=== PATIENT | female | born 1945 | race Caucasian/White ===

== ENCOUNTER 2016-06-08 11:38 | Emergency (ER) | payer MEDICARE ==
[2016-06-08 11:46] VITALS: BP 106/79
[2016-06-08] MEDS ORDERED: Adenosine SYRINGE* 6 MG/2 ML IV PUSH ONE (11:57)
[2016-06-08] MEDS ORDERED: Adenosine* 3 MG/ML VIAL ONE (11:59)
[2016-06-08 12:07] LABS: Hematocrit 43 % (35-47); Hemoglobin 14.1 g/dl (12.0-16.0); Mean Corpuscular HGB Conc 33 g/dl (31-36); Mean Corpuscular Hemoglobin 29 pg (27-31); Mean Corpuscular Volume 89 fL (80-97); Mean Platelet Volume 8 um3 (7.4-10.4); Red Blood Count 4.83 10^6/ul (4.0-5.4); Red Cell Distribution Width 14 % (10.5-15); White Blood Count 9.7 10^3/ul (3.5-10.8)
[2016-06-08 12:14] LABS: Potassium 3.6 mmol/L (3.5-5.0)
[2016-06-08 12:19] LABS: Troponin I 0.01 ng/mL (<0.04)
[2016-06-08 12:56] LABS: TSH (Thyroid Stimulating Horm) 1.71 mcIU/mL (0.34-5.60)
[2016-06-08 13:44] LABS: Albumin 3.8 g/dL (3.2-5.2); BUN/Creatinine Ratio 24.1 (8-20); Calcium 9.6 mg/dL (8.6-10.3); EGFR African American 82.1 (>60); EGFR Non-African American 63.8 (>60); Globulin 2.6 g/dL (2-4); Magnesium 1.9 mg/dL (1.9-2.7); Total Bilirubin 0.5 mg/dL (0.2-1.0); Total Protein 6.4 g/dL (6.4-8.9)
--- NOTE | 2016-06-08 14:01 | ED ---
Gerson Cheek Karl, scribed for Michael Montes MD on 06/08/16 at 1154 . HPI Cardiac - HPI Summary HPI Summary: Pt is a 71 y/o female that presents to the ED c/o rapid HR and mild SOB at approx 11:15 this morning. Pt stated she has episodes like this every 3 months and can usually control it herself, but today while driving she could not so she decided to come to the ED. Hx: SVT, A-fib. - History of Current Complaint Chief Complaint: EDDysrhythmPalp Stated Complaint: CHEST PAIN Time Seen by Provider: 06/08/16 11:43 Hx Obtained From: Patient Onset/Duration: Started Minutes Ago Time of Onset: 11:15 Timing: Intermittent Initial Severity: Moderate Current Severity: Moderate Pain Intensity: 0 Pain Scale Used: 0-10 Numeric Aggravating Factor(s): Nothing Alleviating Factor(s): Nothing Associated Signs and Symptoms: Positive: Palpitations - Allergy/Home Medications Allergies/Adverse Reactions: Allergies Allergy/AdvReac Type Severity Reaction Status Date / Time No Known Allergies Allergy Verified 06/08/16 11:46 Home Medications: Home Medications Diltiazem HCl Extended Release [Diltiazem HCl ER] 120 mg PO DAILY 06/08/16 [ History Confirmed 06/08/16] Potassium Chlor TAB* [Klor Con ER TAB*] 10 meq PO DAILY 06/08/16 [History Confirmed 06/08/16] Rosuvastatin (NF) [Crestor (NF)] 5 mg PO DAILY 06/08/16 [History Confirmed 06/08] PMH/Surg Hx/FS Hx/Imm Hx - Cancer History Hx Chemotherapy: No Hx Radiation Therapy: Yes - BREAST Infectious Disease History: No Infectious Disease History: Denies: Traveled Outside the [place] in Last 30 Days - Family History Known Family History: Positive: Other - [place] - Social History Alcohol Use: None Substance Use Type: Reports: None Smoking Status (MU): Former Smoker Type: Cigarettes Review of Systems Constitutional: Negative Eyes: Negative ENT: Negative Positive: Palpitations - rapid HR Positive: Shortness Of Breath - mild Gastrointestinal: Negative Genitourinary: Negative Musculoskeletal: Negative Skin: Negative Neurological: Negative Psychological: Normal All Other Systems Reviewed And Are Negative: Yes Physical Exam Triage Information Reviewed: Yes Vital Signs On Initial Exam: Initial Vitals Temp Pulse Resp BP Pulse Ox 97.0 F 174 18 106/79 97 06/08/16 11:44 06/08/16 11:44 06/08/16 11:44 06/08/16 11:44 06/08/16 11:44 Vital Signs Reviewed: Yes Appearance: Positive: Well-Appearing, No Pain Distress Skin: Positive: Warm, Skin Color Reflects Adequate Perfusion, Dry Head/Face: Positive: Normal Head/Face Inspection Eyes: Positive: Normal ENT: Positive: Normal ENT inspection Neck: Positive: Supple, Nontender Respiratory/Lung Sounds: Positive: Clear to Auscultation, Breath Sounds Present Cardiovascular: Positive: Tachycardia - 174 bpm Abdomen Description: Positive: Nontender, Soft Bowel Sounds: Positive: Present Musculoskeletal: Positive: Normal Neurological: Positive: Normal Psychiatric: Positive: Normal, Affect/Mood Appropriate Diagnostics - Vital Signs Vital Signs Temp Pulse Resp BP Pulse Ox 06/08/16 11:44 97.0 F 174 18 106/79 97 - Laboratory Lab Results: Lab Results 06/08/16 06/08/16 06/08/16 Range/Units 11:55 11:55 11:55 WBC 9.7 (3.5-10.8) 10^3/ul RBC 4.83 (4.0-5.4) 10^6/ul Hgb 14.1 (12.0-16.0) g/dl Hct 43 (35-47) % MCV 89 (80-97) fL MCH 29 (27-31) pg MCHC 33 (31-36) g/dl RDW 14 (10.5-15) % Plt Count 264 (150-450) 10^3/ul MPV 8 (7.4-10.4) um3 Neut % (Auto) 53.1 (38-83) % Lymph % (Auto) 33.4 (25-47) % [place] % (Auto) 8.4 (1-9) % Eos % (Auto) 4.6 (0-6) % Baso % (Auto) 0.5 (0-2) % Absolute Neuts (auto) 5.2 (1.5-7.7) 10^3/ul Absolute Lymphs (auto) 3.3 (1.0-4.8) 10^3/ul Absolute Monos (auto) 0.8 (0-0.8) 10^3/ul Absolute Eos (auto) 0.4 (0-0.6) 10^3/ul Absolute Basos (auto) 0 (0-0.2) 10^3/ul Absolute Nucleated RBC 0.01 10^3/ul Nucleated RBC % 0.1 INR (Anticoag Therapy) (0.89-1.11) Sodium 136 (133-145) mmol/L Potassium 3.6 (3.5-5.0) mmol/L Chloride 101 (101-111) mmol/L Carbon Dioxide 26 (22-32) mmol/L Anion Gap 9 (2-11) mmol/L BUN 21 (6-24) mg/dL Creatinine 0.87 (0.51-0.95) mg/dL Est GFR ( Amer) 82.1 (>60) Est GFR (Non-Af Amer) 63.8 (>60) BUN/Creatinine Ratio 24.1 H (8-20) Glucose 165 H (70-100) mg/dL Lactic Acid 2.1 H* (0.5-2.0) mmol/L Calcium 9.6 (8.6-10.3) mg/dL Magnesium 1.9 (1.9-2.7) mg/dL Total Bilirubin 0.50 (0.2-1.0) mg/dL AST 17 (13-39) U/L ALT 16 (7-52) U/L Alkaline Phosphatase 76 (34-104) U/L Troponin I 0.01 (<0.04) ng/mL Total Protein 6.4 (6.4-8.9) g/dL Albumin 3.8 (3.2-5.2) g/dL Globulin 2.6 (2-4) g/dL Albumin/Globulin Ratio 1.5 (1-3) TSH 1.71 (0.34-5.60) mcIU/mL 06/08/16 Range/Units 11:55 WBC (3.5-10.8) 10^3/ul RBC (4.0-5.4) 10^6/ul Hgb (12.0-16.0) g/dl Hct (35-47) % MCV (80-97) fL MCH (27-31) pg MCHC (31-36) g/dl RDW (10.5-15) % Plt Count (150-450) 10^3/ul MPV (7.4-10.4) um3 Neut % (Auto) (38-83) % Lymph % (Auto) (25-47) % [place] % (Auto) (1-9) % Eos % (Auto) (0-6) % Baso % (Auto) (0-2) % Absolute Neuts (auto) (1.5-7.7) 10^3/ul Absolute Lymphs (auto) (1.0-4.8) 10^3/ul Absolute Monos (auto) (0-0.8) 10^3/ul Absolute Eos (auto) (0-0.6) 10^3/ul Absolute Basos (auto) (0-0.2) 10^3/ul Absolute Nucleated RBC 10^3/ul Nucleated RBC % INR (Anticoag Therapy) 1.76 H (0.89-1.11) Sodium (133-145) mmol/L Potassium (3.5-5.0) mmol/L Chloride (101-111) mmol/L Carbon Dioxide (22-32) mmol/L Anion Gap (2-11) mmol/L BUN (6-24) mg/dL Creatinine (0.51-0.95) mg/dL Est GFR ( Amer) (>60) Est GFR (Non-Af Amer) (>60) BUN/Creatinine Ratio (8-20) Glucose (70-100) mg/dL Lactic Acid (0.5-2.0) mmol/L Calcium (8.6-10.3) mg/dL Magnesium (1.9-2.7) mg/dL Total Bilirubin (0.2-1.0) mg/dL AST (13-39) U/L ALT (7-52) U/L Alkaline Phosphatase (34-104) U/L Troponin I (<0.04) ng/mL Total Protein (6.4-8.9) g/dL Albumin (3.2-5.2) g/dL Globulin (2-4) g/dL Albumin/Globulin Ratio (1-3) TSH (0.34-5.60) mcIU/mL Result Diagrams: 06/08/16 11:55 06/08/16 11:55 Lab Statement: Any lab studies that have been ordered have been reviewed, and results considered in the medical decision making process. - EKG 11:37 Cardiac Rate: Tachycardia EKG Rhythm: SVT EKG Interpretation: SVT at 179 bpm Disposition - Course Course Of Treatment: Rupa Garcias presented in SVT which she has had before. She was mildly SOB with it but generally felt OK. Her BP was marginal at 90. She was quickly converted with adenocard and observed on the monitor. Her labs were wnl and she remained asymptomatic. - Diagnoses Provider Diagnoses: SVT (supraventricular tachycardia) Discharge - Discharge Plan Condition: Stable Disposition: HOME Patient Education Materials: Supraventricular Tachycardia (ED) Referrals: Cheli Lay MD [Primary Care Provider] - Additional Instructions: Please follow up with your primary care provider. Return to the emergency department for changing or worsening symptoms. The documentation as recorded by the Gerson camargo Karl accurately reflects the service I personally performed and the decisions made by , Michael Montes MD.
== END 2016-06-08 13:25 | disposition home or self-care (01) ==
LOC: ED 11:38
DX: I47.1 Supraventricular tachycardia (principal); Z87.891 Personal history of nicotine dependence; I48.91 Unspecified atrial fibrillation
CPT/HCPCS: 36415; 80053; 83605; 83735; 84443; 84484; 85025; 85610; 93005; 96374; 99284; J0153

== ENCOUNTER 2016-06-10 13:27 | Emergency (ER) | payer MEDICARE ==
[2016-06-10 14:56] VITALS: BP 121/78
--- NOTE | 2016-06-10 15:15 | UC ---
Respiratory Complaint HPI - HPI Summary HPI Summary: 71 yo female has a bad cold for a week at the end of APR. SInce then she has had a cough and wheeze. Has had bronchitis in the past. Did not improve with a Z-KAYKAY and prednsione no CP Had a bout of SVT 2 days ago no f/c cough is rarely productive - History of Current Complaint Chief Complaint: UCRespiratory Stated Complaint: BREATHING COMPLAINT Time Seen by Provider: 06/10/16 15:00 Hx Obtained From: Patient Onset/Duration: Gradual Onset, Lasting Weeks Timing: Constant Severity Initially: Moderate Severity Currently: Moderate Pain Intensity: 0 Pain Scale Used: 0-10 Numeric Character: Cough: Nonproductive Aggravating Factors: Deep Breaths - and talking Alleviating Factors: Nothing Associated Signs And Symptoms: Positive: Wheezing Related History: Similar Episode/Dx as: - bronchitis - Allergies/Home Medications Allergies/Adverse Reactions: Allergies Allergy/AdvReac Type Severity Reaction Status Date / Time No Known Allergies Allergy Verified 06/10/16 14:47 PMH/Surg Hx/FS Hx/Imm Hx Cardiovascular History Of: Reports: Cardiac Disorders - SVT, Hypertension Respiratory History Of: Reports: Bronchitis Cancer History Of: Reports: Breast Cancer - RIGHT 1990 - Surgical History Surgical History: Yes Surgery Procedure, Year, and Place: Left knee arth. Lumpectomy - Family History Known Family History: Positive: Hypertension, Other - [place] - Social History Alcohol Use: None Substance Use Type: None Smoking Status (MU): Former Smoker Type: Cigarettes Review of Systems Constitutional: Negative Skin: Negative Eyes: Negative ENT: Negative Respiratory: Cough Cardiovascular: Negative Gastrointestinal: Negative Genitourinary: Negative Motor: Negative Neurovascular: Negative Musculoskeletal: Negative Neurological: Negative Psychological: Negative All Other Systems Reviewed And Are Negative: Yes Physical Exam Triage Information Reviewed: Yes Appearance: Well-Appearing, No Pain Distress, Well-Nourished Vital Signs: Initial Vital Signs Temp 97.3 F 06/10/16 14:49 Pulse 93 06/10/16 14:49 Resp 18 06/10/16 14:49 BP 121/78 06/10/16 14:49 Pulse Ox 95 06/10/16 14:49 Eyes: Positive: Conjunctiva Clear ENT: Positive: Hearing grossly normal. Negative: Nasal congestion, Nasal drainage Neck: Positive: Supple, No Lymphadenopathy Respiratory: Positive: No respiratory distress, No accessory muscle use, Wheezing Cardiovascular: Positive: RRR, No Murmur. Negative: Tachycardia, Bradycardia Musculoskeletal: Positive: ROM Intact, No Edema Neurological: Positive: Alert Psychological Exam: Normal Skin Exam: Normal UC Diagnostic Evaluation - Laboratory O2 Sat by Pulse Oximetry: 95 - low normal/not hypoxic Respiratory Course/Dx - Differential Dx/Diagnosis Provider Diagnoses: acute bronchitis with bronchospasm Discharge - Discharge Plan Condition: Stable Disposition: HOME Prescriptions: Amoxicillin (*) 875 mg PO BID #20 tab Benzonatate CAP* [Tessalon CAP*] 100 - 200 mg PO TID PRN #28 cap PRN Reason: Cough Prednisone [Deltasone] 40 mg PO DAILY #10 tab Patient Education Materials: Acute Bronchitis (ED) Referrals: Cheli Lay MD [Primary Care Provider] - If Needed (I suggest recheck first available appt) Additional Instructions: if inhaler makes your heart race you may stop it recheck for new or worsening symptoms recheck first available appt with your provider
--- NOTE | 2016-06-10 15:33 | RAD ---
HISTORY: Cough COMPARISONS: 07/02/2010 VIEWS: 2: Frontal dual-energy and lateral views of the chest. FINDINGS: CARDIOMEDIASTINAL SILHOUETTE: The aorta is tortuous. The cardiomediastinal silhouette is otherwise unremarkable. JACINTO: The jacinto are normal. PLEURA: The costophrenic angles are sharp. No pleural abnormalities are noted. LUNG PARENCHYMA: The lungs are clear. ABDOMEN: The upper abdomen is clear. There is no subphrenic gas. BONES AND SOFT TISSUES: No bone or soft tissue abnormalities are noted. OTHER: None. IMPRESSION: NO ACTIVE CARDIOPULMONARY DISEASE.
[2016-06-10] MEDS ORDERED: Albuterol HFA INHALER* 8 gm MDI INH ONE (15:37)
== END 2016-06-10 16:05 | disposition home or self-care (01) ==
LOC: UCEAST 13:27
DX: J20.9 Acute bronchitis, unspecified (principal); Z87.891 Personal history of nicotine dependence
CPT/HCPCS: 71020; 99213; A9270-GY; G0463

== ENCOUNTER 2017-04-04 02:45 | Observation (INO) | payer MEDICARE ==
[2017-04-04] MEDS ORDERED: NS 0.9% 1000 ML* 1,000 ML IV ONE ×2 (03:27→04:53)
[2017-04-04] MEDS ORDERED: Diltiazem IV* 5 MG/ML 5 ML VIAL (for loading dose/IV Push) (25 MG) IV PUSH ONE (03:27)
[2017-04-04] MEDS ORDERED: Digoxin IV* 0.5 MG/2 ML AMP (0.25 MG/ML) IV ONE (03:27)
[2017-04-04 03:44] LABS: Hematocrit 43 % (35-47); Hemoglobin 14.4 g/dl (12.0-16.0); Mean Corpuscular HGB Conc 33 g/dl (31-36); Mean Corpuscular Hemoglobin 29 pg (27-31); Mean Corpuscular Volume 87 fL (80-97); Mean Platelet Volume 8 um3 (7.4-10.4); Red Blood Count 4.95 10^6/ul (4.0-5.4); Red Cell Distribution Width 14 % (10.5-15); White Blood Count 8.1 10^3/ul (3.5-10.8)
[2017-04-04 03:58] LABS: Albumin 3.9 g/dL (3.2-5.2); BUN/Creatinine Ratio 37.7 (8-20); Calcium 9.8 mg/dL (8.6-10.3); EGFR African American 94.5 (>60); EGFR Non-African American 73.5 (>60); Globulin 2.9 g/dL (2-4); Total Bilirubin 0.2 mg/dL (0.2-1.0); Total Protein 6.8 g/dL (6.4-8.9)
[2017-04-04 04:16] LABS: Potassium 3.9 mmol/L (3.5-5.0)
[2017-04-04 04:22] LABS: TSH (Thyroid Stimulating Horm) 3.09 mcIU/mL (0.34-5.60)
[2017-04-04] MEDS ORDERED: Diltiazem DRIP* 100 MG/100 ML ADDV.BAG IVPB ONE (05:44)
--- NOTE | 2017-04-04 06:02 | ED ---
Freda Cheek Thomas, scribed for Ryan Summers MD on 04/04/17 at 0419 . Palpitations / Dysrhythmia - HPI Summary HPI Summary: The pt is a 71 y/o F presenting to the ED c/o palpitations characterized as fast that woke her up shortly prior to arrival. When she went to sleep last night, she did not have palpitations. She has a Hx of SVT and A-Fib. She is on Eliquis. Patient denies recent alcohol or caffeine use. She is on Metoprolol 25mg. - History of Current Complaint Chief Complaint: EDDysrhythmPalp Time Seen by Provider: 04/04/17 03:26 Hx Obtained From: Patient Onset/Duration: Sudden Onset, Lasting Minutes, Still Present Timing: Constant Severity Initially: Moderate Character: Fast Aggravating: Nothing Alleviating: Nothing Associated Signs & Symptoms: Negative - Allergy/Home Medications Allergies/Adverse Reactions: Allergies Allergy/AdvReac Type Severity Reaction Status Date / Time No Known Allergies Allergy Verified 04/04/17 02:59 PMH/Surg Hx/FS Hx/Imm Hx Previously Healthy: No Cardiovascular History: Reports: Hx Hypertension - Cancer History Cancer Type, Location and Year: Breast cancer 1990 Hx Chemotherapy: No Hx Radiation Therapy: Yes - BREAST - Surgical History Surgery Procedure, Year, and Place: Left knee arth. Lumpectomy Infectious Disease History: No Infectious Disease History: Denies: Traveled Outside the [place] in Last 30 Days - Family History Known Family History: Positive: Hypertension, Other - [place] - Social History Alcohol Use: None Substance Use Type: Reports: None Smoking Status (MU): Former Smoker Type: Cigarettes Review of Systems Negative: Fever Positive: Palpitations All Other Systems Reviewed And Are Negative: Yes Physical Exam - Summary Physical Exam Summary: VITAL SIGNS: Reviewed. GENERAL: Patient is a well-developed and nourished female who is lying comfortable in the stretcher. Patient is not in any acute respiratory distress. HEAD AND FACE: No signs of trauma. No ecchymosis, hematomas or skull depressions. No sinus tenderness. EYES: PERRLA, EOMI x 2, No injected conjunctiva, no nystagmus. EARS: Hearing grossly intact. Ear canals and tympanic membranes are within normal limits. MOUTH: Oropharynx within normal limits. NECK: Supple, trachea is midline, no adenopathy, no JVD, no carotid bruit, no c- spine tenderness, neck with full ROM. CHEST: Symmetric, no tenderness at palpation LUNGS: Clear to auscultation bilaterally. No wheezing or crackles. CVS: Irregularly irregular rate. Tachycardia. S1 and S2 present, no murmurs or gallops appreciated. ABDOMEN: Soft, non-tender. No signs of distention. No rebound no guarding, and no masses palpated. Bowel sounds are normal. EXTREMITIES: FROM in all major joints, no edema, no cyanosis or clubbing. NEURO: Alert and oriented x 3. No acute neurological deficits. Speech is normal and follows commands. SKIN: Dry and warm Triage Information Reviewed: Yes Vital Signs On Initial Exam: Initial Vitals Temp Pulse Resp BP Pulse Ox 96.8 F 123 16 106/68 96 04/04/17 02:50 04/04/17 02:50 04/04/17 02:50 04/04/17 02:50 04/04/17 02:50 Vital Signs Reviewed: Yes Diagnostics - Vital Signs Vital Signs Temp Pulse Resp BP Pulse Ox 04/04/17 03:44 144 04/04/17 03:23 122 16 104/90 96 04/04/17 03:17 126 21 90/56 95 04/04/17 03:16 17 88/65 04/04/17 03:09 120 100/61 95 04/04/17 02:50 96.8 F 123 16 106/68 96 - Laboratory Lab Results: Lab Results 04/04/17 04/04/17 04/04/17 Range/Units 03:10 03:10 03:10 WBC 8.1 (3.5-10.8) 10^3/ul RBC 4.95 (4.0-5.4) 10^6/ul Hgb 14.4 (12.0-16.0) g/dl Hct 43 (35-47) % MCV 87 (80-97) fL MCH 29 (27-31) pg MCHC 33 (31-36) g/dl RDW 14 (10.5-15) % Plt Count 268 (150-450) 10^3/ul MPV 8 (7.4-10.4) um3 Neut % (Auto) 60.1 (38-83) % Lymph % (Auto) 28.5 (25-47) % [place] % (Auto) 8.8 (1-9) % Eos % (Auto) 2.1 (0-6) % Baso % (Auto) 0.5 (0-2) % Absolute Neuts (auto) 4.8 (1.5-7.7) 10^3/ul Absolute Lymphs (auto) 2.3 (1.0-4.8) 10^3/ul Absolute Monos (auto) 0.7 (0-0.8) 10^3/ul Absolute Eos (auto) 0.2 (0-0.6) 10^3/ul Absolute Basos (auto) 0 (0-0.2) 10^3/ul Absolute Nucleated RBC 0.01 10^3/ul Nucleated RBC % 0.1 INR (Anticoag Therapy) 0.99 (0.89-1.11) APTT 38.9 H (26.0-36.3) seconds Sodium 139 (133-145) mmol/L Potassium 3.9 (3.5-5.0) mmol/L Chloride 107 (101-111) mmol/L Carbon Dioxide 26 (22-32) mmol/L Anion Gap 6 (2-11) mmol/L BUN 29 H (6-24) mg/dL Creatinine 0.77 (0.51-0.95) mg/dL Est GFR ( Amer) 94.5 (>60) Est GFR (Non-Af Amer) 73.5 (>60) BUN/Creatinine Ratio 37.7 H (8-20) Glucose 94 (70-100) mg/dL Calcium 9.8 (8.6-10.3) mg/dL Magnesium 2.0 (1.9-2.7) mg/dL Total Bilirubin 0.20 (0.2-1.0) mg/dL AST 19 (13-39) U/L ALT 16 (7-52) U/L Alkaline Phosphatase 97 (34-104) U/L Troponin I 0.00 (<0.04) ng/mL Total Protein 6.8 (6.4-8.9) g/dL Albumin 3.9 (3.2-5.2) g/dL Globulin 2.9 (2-4) g/dL Albumin/Globulin Ratio 1.3 (1-3) TSH Pending Result Diagrams: 04/04/17 03:10 04/04/17 03:10 Lab Statement: Any lab studies that have been ordered have been reviewed, and results considered in the medical decision making process. - Radiology CXR Xray Interpretation: No Acute Changes - No acute process Radiology Interpretation Completed By: ED Physician - EKG 02:54 Cardiac Rate: Tachycardia EKG Rhythm: Atrial Fibrillation EKG Interpretation: 126 BPM. Normal axis. No acute ischemic changes. Course/Dx - Course Assessment/Plan: The pt is a 71 y/o F presenting to the ED c/o palpitations characterized as fast that woke her up shortly prior to arrival. When she went to sleep last night, she did not have palpitations. She has a Hx of SVT and A- Fib. She is on Eliquis. Patient denies recent alcohol or caffeine use. She is on Metoprolol 25mg. In the ED course the patient was given Digoxin, Diltiazem, and IV fluids. Bloodwork was obtained. EKG and CXR were obtained. The patient is diagnosed with A-Fib. The patient will be admitted to [facility] [place] by Dr. Lindo. - Diagnoses Provider Diagnoses: Atrial fibrillation - Physician Notifications Discussed Care Of Patient With: Franky Lindo Time Discussed With Above Provider: 05:59 Instructed by Provider To: Other - I consulted with Dr. Lindo, hospitalist , who will admit the patient Discharge - Discharge Plan Condition: Fair Disposition: ADMITTED TO [facility] Referrals: Cheli Lay MD [Primary Care Provider] - The documentation as recorded by the Freda camargo Thomas accurately reflects the service I personally performed and the decisions made by me, Ryan Summers MD.
--- NOTE | 2017-04-04 07:45 | RAD ---
HISTORY: Palpitation COMPARISONS: June 10, 2016 VIEWS: 1: frontal portable view of the chest at 3:40 AM FINDINGS: LINES AND TUBES: None. CARDIOMEDIASTINAL SILHOUETTE: The cardiomediastinal silhouette is normal for portable technique. PLEURA: The costophrenic angles are sharp. No pleural abnormalities are noted. LUNG PARENCHYMA: The lungs are clear. ABDOMEN: The upper abdomen is clear. There is no subphrenic gas. BONES AND SOFT TISSUES: No bone or soft tissue abnormalities are noted. IMPRESSION: NO ACTIVE CARDIOPULMONARY DISEASE.
[2017-04-04] MEDS ORDERED: Digoxin IV* 0.5 MG/2 ML AMP (0.25 MG/ML) IV SLOW PU ONE (07:46)
[2017-04-04] MEDS ORDERED: NS 0.9% w/ 20 Meq KCL 1000 ML* 1,000 ML IV SCH (08:00)
[2017-04-04] MEDS ORDERED: Diltiazem DRIP* 100 MG/100 ML ADDV.BAG IVPB SCH (08:00)
[2017-04-04] MEDS ORDERED: fentaNYL* 50 MCG/ML 2 ML VIAL (100 MCG VIAL) ONE (08:44)
[2017-04-04] MEDS ORDERED: Flumazenil* 0.1 MG/ML 5 ML MDV ONE (08:44)
[2017-04-04] MEDS ORDERED: Midazolam* 1 MG/ML 10 ML VIAL (10 MG) ONE (08:44)
[2017-04-04] MEDS ORDERED: Naloxone* 0.4 MG/ML 1 ML VIAL ONE (08:44)
[2017-04-04] MEDS ORDERED: Potassium Chlor TAB* 10 MEQ TAB.ER PO SCH (09:00)
[2017-04-04] MEDS ORDERED: Apixaban* 5 MG TAB PO SCH (09:00)
[2017-04-04] MEDS ORDERED: Acyclovir* 200 MG CAP PO SCH (09:00)
[2017-04-04] MEDS ORDERED: Diltiazem CD CAP* 120 MG PO SCH (09:00)
[2017-04-04] MEDS ORDERED: Atorvastatin* 10 MG TAB PO SCH (09:00)
[2017-04-04] MEDS ORDERED: Gabapentin CAP(*) 100 MG PO SCH (09:00)
[2017-04-04] MEDS ORDERED: Acetaminophen TAB* 325 MG PO PRN (10:15)
--- NOTE | 2017-04-04 11:04 | HP ---
CC: Dr. Lay; Dr. Figueroa; Dr. Pepe HISTORY AND PHYSICAL: DATE OF ADMISSION: 04/04/17. TIME OF EVALUATION: 7:30 a.m. PRIMARY CARE PROVIDER: Dr. Lay. INSPECTOR CLIP ON SUNGLASSES: Dr. Figueroa. CONSULTING INSPECTOR CLIP ON SUNGLASSES: Dr. Pepe. CHIEF COMPLAINT: Palpitations. HISTORY OF PRESENT ILLNESS: Ms. Garcias is a 71-year-old lady with a past medical history of SVT, a trial fibrillation, hypertension, hyperlipidemia, hyperaldosteronism, breast CA [facility] complaints of palpitations that started around 1:30 in the morning. The patient s tates that is common for her to have episodes of SVT and she is able to break them with Valsalva jenifer uver or ice water to the face. She states that those usually do not work well for her atrial fibrill ation and she is very aware of her heart rhythm and is able to pinpoint exactly when the rhythm watkins es and she usually can feel if it is SVT or atrial fibrillation. She states that yesterday she forgot to take her Cardizem in the morning and she took it in the late afternoon. She was feeling well when she went to bed and around 1:30 in the morning she woke up with her dogs barking. She went to check what was happening and she felt that her heart was racing and p ounding. She tried to count her pulse and realized it was very fast. She tried her usual maneuvers but they did not work and she came to the emergency room for further evaluation where she was found t o be in atrial fibrillation with rapid ventricular rate. She denies chest pain, shortness of breath, nausea, vomiting or other complaints. PAST MEDICAL HISTORY: 1. SVT/atrial fibrillation. The patient states that her last episode was 2 years ago and she usuall y responded to medications, has never required cardioversion. 2. Hypertension. 3. Hyperlipidemia. 4. Hyperaldosteronism. 5. Breast CA, status post lumpectomy and radiation therapy. 6. Status post left knee replacement in October 2016. MEDICATION LIST: 1. Acyclovir 400 mg p.o. daily. 2. Apixaban 5 mg p.o. b.i.d. 3. Cardizem ER 120 mg p.o. daily. 4. Gabapentin 100 mg p.o. daily. 5. Potassium chloride 10 mEq p.o. daily. 6. Pulmicort 180 micrograms inhaled daily as needed for shortness of breath. 7. Rosuvastatin 5 mg p.o. daily. 8. Spironolactone 50 mg p.o. daily. ALLERGIES: No known drug allergies. FAMILY HISTORY: Mother passed of pancreatic cancer, had diabetes. Father had a history of seizure d isorder. SOCIAL HISTORY: Patient is a former smoker. She quit at age 35. No history of alcohol or drug use. Surrogate decision maker is her partner Santosh Vidal, phone number is [phone]. REVIEW OF SYSTEMS: A 14-point review of systems was performed and all the pertinent negative and pos itive findings are in the HPI. PHYSICAL EXAMINATION GENERAL: Patient is a pleasant lady lying in the ER stretcher in no acute distress. VITAL SIGNS: Temperature 96.8, heart rate is 101, respiratory rate is 21, oxygen saturation 95% on r oom air, blood pressure 92/61. LUNGS: Breath sounds present bilaterally with no added sounds. HEART: Normal S1, S2. Irregularly irregular. ABDOMEN: Soft. Bowel sounds are present. EXTREMITIES: No edema. The patient has a well-healed surgical scar to her left knee. NEUROLOGIC: She is alert, awake and oriented x3, able to move all 4 extremities. LABORATORY/IMAGING DATA: Patient had a CBC that showed a WBC of 8.1, hemoglobin of 14.4, hematocrit of 43, platelets of 268 with 60% neutrophils. INR is 0.99. APTT 38. Chemistry showed a sodium of 139, potassium 3.9, chloride of 107, bicarb of 26, BUN of 29, creatinine of 0.7, glucose of 94, calci um of 9.8, magnesium 2.0. LFTs are normal. Troponin is 0. TSH was 3.09. EKG done on April 04 at 2:54 a.m. showed atrial fibrillation with heart rate of 126. No signifi cant ST-T changes. On her prior EKG from May 2016 the patient was in SVT. Chest x-ray showed no active cardiopulmonary disease. ASSESSMENT AND PLAN: Ms. Garcias is a 71-year-old lady with a past medical history of supraventricu lar tachycardia, atrial fibrillation, hypertension, hyperlipidemia, breast cancer who presents to the emergency room with complaints of palpitations found to be in atrial fibrillation with rapid ventric ular rate. 1. Atrial fibrillation with rapid ventricular rate. I believe this episode is secondary to her missing medication dose yesterday. Her electrolytes are n ormal. Thyroid function is also normal. Troponins are negative. The patient will be admitted as observation to the telemetry floor. She will be continued on a Cardi zem drip. I discussed the case with Cardiology (Dr. Pepe) and he will evaluate the patient and decide if cardi oversion is indicated at this point. I believe it will be as the patient is showing hypotension afte r being started on a Cardizem drip. She is already anticoagulated with Eliquis. 2. DVT prophylaxis: The patient has a score of 4 on the DVT Prophylaxis Risk Assessment Guide and s he is already anticoagulated with Eliquis. 3. Code status is full. TIME SPENT: Approximately 55 minutes was spent with the patient interview, medical records review, p hysical examination to complete this admission; more than half of this time was spent [id number] wi th the patient and coordination of care. [id number] #: [id number]
[2017-04-04 14:00] VITALS: BP 94/54
--- NOTE | 2017-04-04 14:11 | CONS ---
CC: Dr. Lay at [facility]; Dr. Fernando Figueroa * CARDIOLOGY CONSULTATION: DATE OF CONSULT: 04/04/17 INDICATION FOR CONSULTATION: Atrial fibrillation. HISTORY OF PRESENT ILLNESS: The patient is a 71-year-old woman with a history of atrial arrhythmias both paroxysmal atrial fibrillation and supraventricular tachycardia. The patient is on chronic beta-carmita, calcium-channel carmita, and anticoagulation. The patient was feeling fine until about 3 o'clock this morning and when she awoke with a racing heart. The patient states that she went to bed last night, feeling her usual self. She had no palpitations. She had no chest pain. She had no shortness of breath. The patient awoke in the middle of the night with her heart racing and feeling slightly short of breath. She decided to drive to the emergency room. On arrival to the emergency room , she was in atrial fibrillation with rapid ventricular response. The patient was given IV diltiazem and her heart rate came down appropriately. The patient has had no recent changes in medications, no recent hospitalizations. PAST MEDICAL HISTORY: Significant for hypertension, supraventricular tachycardia, and paroxysmal atrial fibrillation. PAST SURGICAL HISTORY: Lumpectomy in 1990, rotator cuff surgery in 2012. OUTPATIENT MEDICATIONS: 1. Potassium 20 mEq daily. 2. Metoprolol succinate 25 mg a day. 3. Eliquis 5 mg a day. 4. Diltiazem 120 mg a day. 5. Gabapentin 100 mg a day. 6. Spironolactone 50 mg a day. 7. Acyclovir 400 mg a day. 8. Crestor 5 mg a day. 9. Pulmicort inhaler. ALLERGIES: No known drug allergies. FAMILY HISTORY: No history of early coronary artery disease. Mother of pancreatic cancer. SOCIAL HISTORY: She has a significant other. She is retired from [employer]. She is a former smoker. She quit at age 35. Rare alcohol use. She does get regular exercise. PHYSICAL EXAM: Height is 5 feet 7 inches, weight is 145 pounds. Heart rate is 101, blood pressure 92/61, respiratory rate is 20, oxygen saturation 95% on room air. Sclerae anicteric. Oropharynx is pink without erythema. Carotids are 2+ without bruits. JVD is normal. Thyroid is normal. Cardiac Exam: S1, S2 , irregular. No murmurs, rubs, or gallops. Lungs are clear to auscultation. There is no dullness to percussion. Abdomen is soft, nontender, nondistended. Normoactive bowel sounds. Extremities show no edema. She has 2+ pulses throughout. The patient is awake and alert and oriented. She moves all 4 extremities equally. DIAGNOSTIC STUDIES/LAB DATA: CBC within normal limits. Chemistries within normal limits. AST and ALT are normal. Troponin is negative x2. TSH is 3.01. EKG shows atrial fibrillation at a rate of 90 beats per minute, otherwise unremarkable. IMPRESSION: This is a 71-year-old female with a history of paroxysmal atrial fibrillation, who comes to the hospital with atrial fibrillation and rapid ventricular response. The patient is on chronic anticoagulation and on rate control agents. The patient will undergo cardioversion today and will follow up with Dr. Figueroa for any changes in medications. Her last episode of atrial fibrillation was more than 5 years ago. [id number]/[facility]PS #: [id number] MTDD
--- NOTE | 2017-04-04 19:14 | CARD ---
CC: Dr. Figueroa * CARDIOVERSION NOTE: DATE OF STUDY: 04/04/17 PROCEDURE: Cardioversion. INDICATION: Atrial fibrillation. HISTORY: The patient is a 71-year-old woman with a long history of atrial arrhythmias. She is on chronic anticoagulation. The patient woke up at 3 o' clock in the morning with her heart racing and came to the emergency room and was found to be in atrial fibrillation with rapid ventricular response. Cardioversion was recommended. PROCEDURE IN DETAIL: The patient was in a fasting state. Informed consent had been obtained prior to the procedure. All labs were reviewed. Again, the patient is on chronic anticoagulation with Eliquis. The patient was given 2 mg of Versed and 25 mcg of fentanyl for conscious sedation. The patient was cardioverted with 120 joules of synchronized biphasic energy. The patient converted to normal sinus rhythm. The patient tolerated the procedure well and no complications. The patient will follow up with Dr. Figueroa as an outpatient. [id number]/[facility] #: [id number] MTDD
--- NOTE | 2017-04-05 08:31 | DS ---
CC: Dr. Lay; Dr. Figueroa DISCHARGE SUMMARY: DATE OF ADMISSION: 04/04/17 DATE OF DISCHARGE: 04/04/17 PRIMARY CARE PROVIDER: Dr. Lay. TOP INSTALLER: Dr. Figueroa. DISCHARGE DIAGNOSIS: Atrial fibrillation with rapid ventricular rate, status post cardioversion. SECONDARY DIAGNOSES: 1. Paroxysmal atrial fibrillation. 2. Hypertension. 3. Hyperlipidemia. 4. Hyperaldosteronism. 5. Breast carcinoma, status post lumpectomy and radiation. 6. Status post left knee replacement in October 2016. MEDICATION LIST: Unchanged from admission. HOSPITAL COURSE: Mrs. Garcias is a 71-year-old lady with a past medical history as stated above stephanie t was admitted to the telemetry floor on 04/04 with atrial fibrillation with rapid ventricular rate. She was started on a Cardizem drip and later on taken to [facility] where she underwent cardioversion. The patient remained in sinus rhythm, asymptomatic and she was felt to be medically stable to be dischar [facility] home today to follow up with Dr. Figueroa and Dr. Lay as outpatient. The impression is that this episode was brought on because she missed one of her Cardizem doses the day prior to admission and she was advised about the importance of compliance with her medications. Please keep in mind this is a summarized version of this patient's hospital stay. If you need more in formation, please feel free to call me at [phone] or please obtain the full medical record. Approximately 60 minutes were spent toward the patient's admission and discharge the same day. [id number]/[facility] #: [id number]
== END 2017-04-04 16:25 | disposition home or self-care (01) ==
LOC: ED 02:45 → MEDTELE 07:43 → ED 08:22 → MEDTELE 09:23
PROVIDERS: ADMIT Internal Medicine; ATTEND Internal Medicine
DX: I48.91 Unspecified atrial fibrillation (principal); I48.0 Paroxysmal atrial fibrillation; I10 Essential (primary) hypertension; E78.5 Hyperlipidemia, unspecified; E26.9 Hyperaldosteronism, unspecified; Z85.3 Personal history of malignant neoplasm of breast; Z87.891 Personal history of nicotine dependence; Z96.652 Presence of left artificial knee joint
CPT/HCPCS: 36415; 71010; 80053; 83735; 84443; 84484; 85025; 85610; 85730; 92960; 93005; 96374; 96376; 99156; 99157; 99284; A9270-GY; G0378; J1160; J2250; J2310; J3010

== ENCOUNTER 2020-04-23 07:30 | Observation (INO) ==
[~2020-04-23 07:30] MED LIST: Buffered Lidocaine 1% SYRIN 1 ml INTRADERM ONE; Lactated Ringers 1000 ml BAG 1,000 ML IV SCH
[2020-04-23] MEDS ORDERED: Midazolam 2 mg/2 ml VIAL 1 mg/ml 2 ml VIAL (2 mg) ONE ×3 (11:09→18:58)
[2020-04-23] MEDS ORDERED: fentaNYL 100 mcg/2 ml 50 MCG/ML VIAL ONE ×2 (11:09→18:45)
[2020-04-23] MEDS ORDERED: ceFAZolin 2 GM PREMIX 2 GM/50 ML BAG ONE (14:31)
[2020-04-23] MEDS ORDERED: Buffered Lidocaine 1% SYRIN 1 ml INTRADERM ONE (14:32)
[2020-04-23] MEDS ORDERED: Rocuronium 50 mg VIAL 10 mg/ml 5 ml VIAL (50 mg) ONE (14:55)
[2020-04-23 14:58] LABS: INR 1.06 (0.82-1.09)
[2020-04-23] MEDS ORDERED: Lidocaine 1% MPF 5 ML VIAL ONE (15:20)
[2020-04-23] MEDS ORDERED: ROPIVACAINE 5 MG/ML 30 ML BTL (0.5%) ONE ×2 (15:20→15:57)
[2020-04-23] MEDS ORDERED: Dexamethasone IV 4 MG/ML VIAL 1 ml VIAL ONE ×2 (15:22→18:29)
[2020-04-23] MEDS ORDERED: Lactulose 30 ml UDC PO PRN (16:42)
[2020-04-23] MEDS ORDERED: Magnesium Hydroxide LIQ 30 ML UDC PO PRN (16:42)
[2020-04-23] MEDS ORDERED: diPHENhydraMINE IV 50 MG/ML 1 ml VIAL (BENADRYL) IV PRN ×2 (16:42→17:06)
[2020-04-23] MEDS ORDERED: Ondansetron 4 mg VIAL 2 MG/ML 2 ml VIAL IV PRN (16:42)
[2020-04-23] MEDS ORDERED: Morphine 2 MG/ML SYRINGE IV PRN (16:42)
[2020-04-23] MEDS ORDERED: Ondansetron ODT 4 mg TAB 4 MG TAB PO PRN (16:42)
[2020-04-23] MEDS ORDERED: diPHENhydraMINE 25 mg TAB PO PRN (16:42)
[2020-04-23] MEDS ORDERED: Lactated Ringers 1000 ml BAG 1,000 ML IV SCH (17:00)
[2020-04-23] MEDS ORDERED: Naloxone 0.4 mg VIAL 0.4 mg/ml 1 ml VIAL IV PRN (17:06)
[2020-04-23] MEDS ORDERED: Prochlorperazine 5 mg/ml 2 ml VIAL (10 mg) IV PRN ×2 (17:06→21:44)
[2020-04-23] MEDS ORDERED: HYDROmorphone 1 MG/1 ML SYRINGE IV PRN (17:06)
[2020-04-23] MEDS ORDERED: HYDROmorphone 1 MG/1 ML SYRINGE ONE (17:31)
[2020-04-23] MEDS ORDERED: Propofol 10 MG/ML 20 ML BTL ONE (18:29)
[2020-04-23] MEDS ORDERED: Acetaminophen IV 1 GM/100ML 100 ML ONE (18:30)
[2020-04-23] MEDS: oxyCODONE/Acetamin 5/325 mg TAB PO PRN (21:44)
[2020-04-23] MEDS: Magnesium Hydroxide LIQ 30 ML UDC PO SCH (21:45)
[2020-04-23] MEDS: Mometasone 220 MCG MDI INH SCH (22:45)
[2020-04-24] MEDS: ceFAZolin 1 GM ADVAN 1 GM in NS 0.9% 50 ML 50 ML IVPB SCH ×2 (00:23→07:57)
[2020-04-24] MEDS ORDERED: Benzocaine/Menthol LOZ PO PRN (01:41)
[2020-04-24] MEDS: oxyCODONE/Acetamin 5/325 mg TAB PO PRN ×2 (01:57→07:56)
[2020-04-24 05:04] LABS: Hematocrit 33 % (35-47); Hemoglobin 11.1 g/dL (12.0-16.0); Mean Platelet Volume 7.4 fL (7.4-10.4); Platelet Count 237 10^3/uL (150-450)
[2020-04-24 05:20] LABS: Calcium 8.4 mg/dL (8.6-10.3); EGFR African American 88.2 (>60); EGFR Non-African American 72.9 (>60); Potassium 4.3 mmol/L (3.5-5.0)
[2020-04-24] MEDS: Mometasone 220 MCG MDI INH SCH (08:18)
[2020-04-24] MEDS: Magnesium Hydroxide LIQ 30 ML UDC PO SCH (08:48)
[2020-04-24] MEDS ORDERED: Vitamin THERAPEUTIC TAB PO SCH (09:00)
[2020-04-24] MEDS ORDERED: Potassium Chlor 10 meq TAB PO SCH (09:00)
[2020-04-24 11:33] VITALS: BP 107/64
== END 2020-04-24 14:50 | disposition home or self-care (01) ==
LOC: INTOOBSV 13:58 → AA 13:58 → SSU 20:39
PROVIDERS: ADMIT Orthopaedic Surgery Adult Reconstructive Orthopaedic Surgery; ATTEND Orthopaedic Surgery Adult Reconstructive Orthopaedic Surgery

== ENCOUNTER 2022-10-18 08:21 | Observation (INO) ==
[2022-10-18] MEDS ORDERED: Ondansetron 4 mg VIAL 2 MG/ML 2 ml VIAL IV ONE (08:52)
[2022-10-18] MEDS ORDERED: Lactated Ringers 1000 ml BAG 1,000 ML IV ONE (08:52)
[2022-10-18] MEDS ORDERED: Morphine 2 MG/ML SYRINGE IV ONE ×2 (08:52→11:34)
[2022-10-18 09:27] LABS: ABS Eosinophils 0.1 10^3/uL (0.0-0.5); ABS Lymphocytes 1.8 10^3/uL (1.0-4.8); ABS Monocytes 0.6 10^3/uL (0.0-0.9); ABS Neutrophils 4.4 10^3/uL (1.5-7.6); ABS Nucleated RBC 0.01 10^3/ul; Eosinophil % 1.3 %; Hematocrit 40.4 % (35-45); Hemoglobin 13.6 g/dL (11.5-14.3); Mean Corpuscular Hemoglobin 29.5 pg (27-33); Mean Corpuscular Hgb Conc 33.6 g/dL (31-36); Mean Corpuscular Volume 87.6 fL (80-97); Mean Platelet Volume 7.4 fL (7.5-11.2); Nucleated Red Blood Cells % 0.1 /100 WBC (0.0-0.4); Platelet Count 262 10^3/uL (150-450); Red Blood Count 4.61 10^6/uL (3.63-4.92); Red Cell Distribution Width 13.4 % (12-17); White Blood Count 6.9 10^3/uL (3.8-11.8)
[2022-10-18 09:33] LABS: INR 1.33 (0.88-1.18)
[2022-10-18 09:36] LABS: Urine Appearance Clear; Urine Bilirubin Negative (Negative); Urine Blood Negative (Negative); Urine Color Yellow; Urine Glucose Negative (Negative); Urine Ketones Negative (Negative); Urine Nitrite Negative (Negative); Urine Protein Negative (Negative); Urine Specific Gravity 1.021 (1.002-1.030); Urine Urobilinogen Negative (Negative)
[2022-10-18 09:46] LABS: Albumin 3.8 g/dL (3.2-5.2); Albumin/Globulin Ratio 1.5 (1-3); C Reactive Protein 2.17 mg/L (<8.01); Calcium 9.4 mg/dL (8.6-10.3); Creatinine, Serum 0.76 mg/dL (0.51-0.95); Globulin 2.5 g/dL (2-4); Total Bilirubin 0.4 mg/dL (0.2-1.0); Total Protein 6.3 g/dL (6.4-8.9); eGFR CKD-EPI 79.7 (>60)
[2022-10-18] MEDS ORDERED: Iohexol 350 (CONTRAST) 500 ML MDV IV ONE (10:40)
[2022-10-18] MEDS ORDERED: Levalbuterol HFA INHALER MDI INH PRN (14:56)
[2022-10-18] MEDS ORDERED: Morphine 2 MG/ML SYRINGE IV PRN (16:41)
[2022-10-18] MEDS: Mometasone/Formoter 200/5 MDI INH SCH (17:18)
[2022-10-18 20:52] LABS: ABS Lymphocytes 1.3 10^3/uL (1.0-4.8); ABS Monocytes 0.8 10^3/uL (0.0-0.9); ABS Neutrophils 6.7 10^3/uL (1.5-7.6); ABS Nucleated RBC 0.01 10^3/ul; Eosinophil % 0.2 %; Hematocrit 36.2 % (35-45); Lymphocyte % 14.6 %; Mean Corpuscular Hemoglobin 29.3 pg (27-33); Mean Corpuscular Hgb Conc 33.2 g/dL (31-36); Mean Corpuscular Volume 88.1 fL (80-97); Mean Platelet Volume 7.2 fL (7.5-11.2); Nucleated Red Blood Cells % 0.1 /100 WBC (0.0-0.4); Platelet Count 241 10^3/uL (150-450); Red Blood Count 4.11 10^6/uL (3.63-4.92); Red Cell Distribution Width 13.3 % (12-17); White Blood Count 8.9 10^3/uL (3.8-11.8)
[2022-10-19 03:13] LABS: Hematocrit 35.8 % (35-45)
[2022-10-19 05:22] LABS: ABS Eosinophils 0.1 10^3/uL (0.0-0.5); ABS Lymphocytes 1.7 10^3/uL (1.0-4.8); ABS Monocytes 0.8 10^3/uL (0.0-0.9); Eosinophil % 1.3 %; Hematocrit 35.4 % (35-45); Hemoglobin 12.1 g/dL (11.5-14.3); Lymphocyte % 22.5 %; Mean Corpuscular Hemoglobin 30.1 pg (27-33); Mean Corpuscular Hgb Conc 34.1 g/dL (31-36); Mean Corpuscular Volume 88.3 fL (80-97); Mean Platelet Volume 7.8 fL (7.5-11.2); Platelet Count 251 10^3/uL (150-450); Red Blood Count 4.01 10^6/uL (3.63-4.92); Red Cell Distribution Width 13.4 % (12-17); White Blood Count 7.6 10^3/uL (3.8-11.8)
[2022-10-19] MEDS: Mometasone/Formoter 200/5 MDI INH SCH (07:47)
[2022-10-19] MEDS ORDERED: Calcium/Vitamin D TAB 250/125 TAB PO SCH (09:00)
[2022-10-19] MEDS ORDERED: Fluticasone NASAL SPRAY 50MCG 16 gm SPRAY BTL BOTH NARES SCH (09:00)
[2022-10-19] MEDS ORDERED: Cholecalciferol (VIT D3) 1,000 unit TAB PO SCH (09:00)
[2022-10-19 11:27] LABS: Hematocrit 38.8 % (35-45)
[2022-10-19 13:54] VITALS: BP 99/66
== END 2022-10-19 15:10 | disposition home or self-care (01) ==
LOC: ED 08:21 → EDHOLD 08:21 → SUATTDRO 14:41 → MED 17:02
PROVIDERS: ADMIT Internal Medicine; ATTEND Internal Medicine